=== PATIENT | female | born 1965 | race Caucasian/White ===

== ENCOUNTER 2018-04-14 21:12 | Emergency (ER) | END 2018-04-15 01:04 | disposition home or self-care (01) ==

== ENCOUNTER 2018-07-14 12:17 | Emergency (ER) | END 2018-07-14 16:26 | disposition home or self-care (01) ==

== ENCOUNTER 2018-09-17 13:45 | Emergency (ER) | END 2018-09-17 16:01 | disposition home or self-care (01) ==

== ENCOUNTER 2018-11-23 11:53 | Emergency (ER) | payer MEDICAID ==
[~2018-11-23] VITALS: Wt 70.7 kg
[~2018-11-23 11:53] MED LIST: CEPH-443 PO; IBUP-1542 PO; OXYC-279 PO; TRAM50TA2 PO
[2018-11-23 11:57] VITALS: BP 139/79; PULSE 81; RESP 18
[2018-11-23] MEDS ORDERED: KETOROLAC 30 MG INJ IM STA (13:02)
[2018-11-23] MEDS ORDERED: D-ME473S2 PO (14:32)
[2018-11-23] MEDS ORDERED: IBUP-1542 PO (14:32)
--- NOTE | 2018-11-23 14:34 | ERD ---
ER Documentation Chief Complaint Chief Complaint COUGH X 8 DAYS HPI 53-year-old female presents with cough for last 3 days. She is upper back pain as well. She may have fever and body aches in the illness as well to. She denies any chest pain, vomiting, abdominal pain. She also complains of bilateral eye irritation without visual changes or deficits. ROS All systems reviewed and are negative except as per history of present illness. Medications Home Meds Active Scripts Polymyxin B Sulfate-TMP* (Polymyxin B-TMP Eye Drops*) 10 Ml Drops, 1 DROP BOTH EYES QID for 7 Days, EA Prov:ALLEN FRANCIS MD 11/23/18 Dextromethorphan Hb-Promethazine Hcl* (Promethazine DM* Syrup) 473 Ml Syrup, 5 ML PO Q6 PRN for COUGH for 5 Days, ML Prov:ALLEN FRANCIS MD 11/23/18 Ibuprofen* (Motrin*) 600 Mg Tab, 600 MG PO Q6, #15 TAB Prov:ALLEN FRANCIS MD 11/23/18 Tramadol HCl (Tramadol HCl) 50 Mg Tablet, 50 MG PO Q4 PRN for PAIN, #15 TAB Prov:ALLEN FRANCIS MD 09/17/18 Cephalexin* (Keflex*) 500 Mg Capsule, 500 MG PO QID for 28 Days, CAP Prov:SLY OREILLY MD 07/14/18 Ibuprofen* (Motrin*) 600 Mg Tab, 600 MG PO Q8 PRN for PAIN AND/OR INFLAMMATION, #30 TAB Prov:SLY OREILLY MD 07/14/18 Oxycodone HCl/Acetaminophen (Percocet 5-325 mg Tablet) 1 Each Tablet, 1 EACH PO TID PRN for PAIN, #12 TAB Prov:SLY OREILLY MD 07/14/18 Allergies Allergies: Coded Allergies: No Known Allergy (Unverified , 07/14/18) PMhx/Soc History of Surgery: Yes (appendectomy, , tubal ligation) Anesthesia Reaction: No Hx Neurological Disorder: No Hx Respiratory Disorders: No Hx Cardiac Disorders: No Hx Psychiatric Problems: No Hx Miscellaneous Medical Probl: No Hx Alcohol Use: Yes (socially ) Hx Substance Use: No Hx Tobacco Use: No Smoking Status: Former smoker FmHx Family History: No diabetes, No coronary disease, No other Physical Exam Vitals Vital Signs Date Temp Pulse Resp B/P (MAP) Pulse Ox O2 O2 Flow FiO2 Time Delivery Rate 11/23/18 97.7 81 18 139/79 99 11:57 (99) Physical Exam Const: No acute distress Head: Atraumatic Eyes: Normal Conjunctiva. Minimal redness of bilateral sclera with pterygiums. No proptosis or abnormal eye movements. Eyes Caitlin and extraocular movements intact. ENT: Normal External Ears, Nose and Mouth. TMs and oropharynx normal. Neck: Full range of motion. No meningismus. Resp: Clear to auscultation bilaterally. Dry cough without rales, wheezing or retractions. Cardio: Regular rate and rhythm, no murmurs Abd: Soft, non tender, non distended. Normal bowel sounds Skin: No petechiae or rashes Back: No midline or flank tenderness Ext: No cyanosis, or edema Neur: Awake and alert Psych: Normal Mood and Affect Results 24 hrs Current Medications Medications Dose Sig/Dana Start Time Status Last (Trade) Ordered Route PRN Stop Time Admin Dose Reason Admin Ketorolac 30 mg ONCE STAT 11/23/18 DC 11/23/18 Tromethamine IM 13:02 13:14 (Toradol) 11/23/18 13:04 Procedures/MDM Chest X-ray 1V Interpreted by me: Soft Tissue: No acute abnormalities Bones: No acute abnormalities Mediastinum/Cardiac Silhouette/Lungs: No acute abnormalities. Impression- normal 1 view chest x-ray Cough, body aches and possible fever for the last week. She has no evidence of hypoxemia, respiratory stress, chest pain, abdominal pain, pneumonia. Doubt PE. Patient likely has viral URI. She will be treated with promethazine, ibuprofen, primary care follow-up and return precautions. The patient was stable with no new complaints during the ER course. Clinically, there is no current evidence to suggest meningitis, sepsis, acute abdomen, pneumonia, stroke, acute coronary syndrome, pulmonary embolism, aortic dissection or any other emergent condition appearing to require further evaluation or hospitalization. Patient counseled regarding my diagnostic impression and care plan. Prior to discharge all questions answered. Pt agrees with treatment plan and understands strict return precautions. Pt is instructed to follow up with primary care provider within 24-48 hours. Precautionary instructions provided including instructions to return to the ER if not improving or for any worsening or changing symptoms or concerns. She will be given Polytrim for what appears to be likely viral conjunctivitis. There is no evidence of orbital cellulitis, signs or symptoms of pain to suggest ulcers, threats to vision no evidence of optic neuritis, retinal artery ischemia, additional eye emergencies. Departure Diagnosis: Primary Impression: Cough Condition: Stable Patient Instructions: Uri, Viral, No Abx (Adult) Additional Instructions: X RAY NORMAL. Examines normal hoy. Cheque otro vez con jauregui doctor primario en el proximo brantley or regresa para mas o nueva simptomas. Probablamente un virus que dura 2-4 brantley. cheque otro vez en el proximo peggy para mas simptomas- vomito, dolor, shelly, problemas con respirando, o con jauregui doctor primario. ALLEN FRANCIS MD Nov 23, 2018 14:34
[2018-11-23] MEDS ORDERED: POLY10DR19 BOTH EYES (14:41)
== END 2018-11-23 14:44 | disposition home or self-care (01) ==
LOC: FTE 11:53
DX: R05 Cough (principal); Z87.891 Personal history of nicotine dependence
CPT/HCPCS: 71045; J1885; 96372